=== PATIENT | female | born 1950 ===

== ENCOUNTER 2019-11-23 01:12 | Inpatient (IN) ==
[2019-11-23] MEDS ORDERED: ASPIRIN 325 MG TABLET PO ONE (03:47)
[2019-11-23] MEDS ORDERED: ONDANSETRON 4 MG/2 ML VIAL IV PRN (03:55)
[2019-11-23] MEDS ORDERED: hydrALAZINE 20 MG/1 ML VIAL IV PRN (03:55)
[2019-11-23] MEDS ORDERED: NICOTINE 21 MG/24 HR PATCH TRANSDERM PRN (03:55)
[2019-11-23] MEDS ORDERED: diphenhydrAMINE CAP 25 MG CAPSULE PO PRN (03:55)
[2019-11-23] MEDS ORDERED: ACETAMINOPHEN 325 MG TABLET PO PRN (03:55)
[2019-11-23] MEDS ORDERED: ALUMINUM/MAGNES/SIMETH MAX STR 30 ML UDCUP PO PRN (03:55)
[2019-11-23] MEDS ORDERED: GLUCAGON 1 MG VIAL IM PRN (03:55)
[2019-11-23] MEDS ORDERED: DEXTROSE 10% 250 ML BAG IV PRN (04:03)
[2019-11-23 04:05] LABS: Allen Test Positive
[2019-11-23 04:08] LABS: ABG Base Excess 6.4 MMOL/L (-2.5-2.5); ABG HCO3 30.3 MMOL/L (20-26); ABG Oxygen Saturation 98.1 % (95-100); ABG PCO2 57.1 MM HG (35-48); ABG PO2 93.9 MM HG (80-95); ABG TCO2 30.5 MMOL/L (23-27)
[2019-11-23 04:49] LABS: Basophils % 0.6 % (0.0-0.8); Eosinophils # 0.1 10*3/uL (0.0-0.87); Eosinophils % 1.5 % (0.00-10.9); Hematocrit 30.4 VOL% (35.7-47.0); Hemoglobin 9.1 GM/DL (12.0-16.0); Immature Granulocytes % 0.6 %; Immature Granulocytes Absolute 0.02 #; Lymphocytes # 0.4 10*3/uL (1.4-4.0); Lymphocytes % 11.9 % (21.3-54.2); Mean Corpuscular HGB Conc 29.9 GM/DL (32-36); Mean Corpuscular Volume 108.2 FL (87-102); Neutrophils % 74.4 % (38.7-73.9); Red Blood Count 2.81 MC/CUMM (3.8-5.5); Red Cell Distribution Width 14.6 % (9.3-17.3); White Blood Count 3.4 T/CUMM (4-12)
[2019-11-23 04:53] LABS: Platelet Count 89 T/CUMM (130-400)
[2019-11-23] MEDS ORDERED: PIPERACILLIN/TAZOBACTAM 3,375 MG in SODIUM CHLORIDE 0.9% 100 ML IV SCH (05:00)
[2019-11-23 05:07] LABS: Risk Ratio 2.09; VLDL CHOLESTEROL 26.4 MG/DL
[2019-11-23 05:09] LABS: Alanine Aminotransferase 33 U/L (13-56); Alkaline Phosphatase 154 U/L (45-117); Aspartate Amino Transferase 38 U/L (0-37); Blood Urea Nitrogen 21 MG/DL (7-18); Calcium 8.6 MG/DL (8.5-10.1); Estimated Glom Filtration Rate 9 ML/MIN; Glucose 192 MG/DL (74-106); Osmolality,Calculated 277.1 MOS/KG (273-304); Total Protein 6.6 G/DL (6.4-8.3)
[2019-11-23 05:10] LABS: Troponin I 0.163 NG/ML (0.00-0.045)
[2019-11-23 05:17] LABS: INR 1.1; PT Patient Result 12.4 SECS (9.6-12.2); Partial Thromboplastin Time 32.4 SECS (20.8-36.0)
[2019-11-23] MEDS: PIPERACILLIN/TAZOBACTAM 3,375 MG in SODIUM CHLORIDE 0.9% 100 ML IV SCH ×2 (05:36→17:06)
[2019-11-23] MEDS: INSULIN REGULAR 100 UNIT/ML SUBCUT SCH ×4 (06:07→23:54)
[2019-11-23] MEDS: ALBUTEROL/IPRATROPIUM 3 ML NEB RESP TX SCH ×3 (06:51→19:35)
[2019-11-23 07:24] LABS: ABG HCO3 29.8 MMOL/L (20-26); ABG Oxygen Saturation 98.4 % (95-100); ABG PCO2 58.8 MM HG (35-48); ABG PH 7.356 (7.35-7.45); ABG TCO2 30.3 MMOL/L (23-27); Allen Test Positive
[2019-11-23] MEDS ORDERED: METOPROLOL TARTRATE 25 MG TABLET PO SCH (09:00)
[2019-11-23] MEDS ORDERED: OSELTAMIVIR 30 MG CAPSULE PO SCH (09:00)
[2019-11-23] MEDS: AZITHROMYCIN INJ 500 MG in SODIUM CHLORIDE 0.9% 250 ML IV SCH (09:07)
[2019-11-23] MEDS: INSULIN NPH/REGULAR 70/30 100 UNIT/ML SUBCUT SCH ×2 (09:08→17:08)
[2019-11-23] MEDS: ENOXAPARIN 100 MG/ML SYRINGE SUBCUT SCH (09:08)
[2019-11-23] MEDS: ASPIRIN EC 81 MG TABLET PO SCH (09:12)
[2019-11-23] MEDS: CALCIUM ACETATE 667 MG CAPSULE PO SCH ×2 (09:30→13:17)
[2019-11-23] MEDS: MORPHINE 4 MG/1 ML VIAL IV PRN ×2 (11:17→21:38)
[2019-11-23] MEDS: SEVELAMER CARBONATE 800 MG TABLET PO SCH ×2 (13:22→17:07)
[2019-11-23] MEDS: SIMVASTATIN 20 MG TABLET PO SCH (21:03)
[2019-11-23] MEDS: guaiFENesin/DM ER 600-30 MG TABLET PO PRN (21:03)
[2019-11-23] MEDS: METOPROLOL TARTRATE 25 MG TABLET PO SCH (21:03)
[2019-11-24] MEDS: ALBUTEROL/IPRATROPIUM 3 ML NEB RESP TX SCH ×4 (00:51→19:34)
[2019-11-24 04:20] LABS: Basophils % 0.7 % (0.0-0.8); Eosinophils # 0.2 10*3/uL (0.0-0.87); Eosinophils % 5.5 % (0.00-10.9); Hematocrit 30.1 VOL% (35.7-47.0); Hemoglobin 9.1 GM/DL (12.0-16.0); Immature Granulocytes % 1.2 %; Immature Granulocytes Absolute 0.05 #; Lymphocytes # 0.6 10*3/uL (1.4-4.0); Lymphocytes % 14.7 % (21.3-54.2); Mean Corpuscular HGB Conc 30.2 GM/DL (32-36); Mean Corpuscular Volume 107.9 FL (87-102); Mean Platelet Volume 11.2 FL (9.6-12.0); Monocytes % 8.8 % (1.7-12.7); Neutrophils % 69.1 % (38.7-73.9); Platelet Count 106 T/CUMM (130-400); Red Blood Count 2.79 MC/CUMM (3.8-5.5); Red Cell Distribution Width 14.5 % (9.3-17.3); White Blood Count 4.2 T/CUMM (4-12)
[2019-11-24 04:38] LABS: Hypochromasia Slight
[2019-11-24] MEDS: PIPERACILLIN/TAZOBACTAM 3,375 MG in SODIUM CHLORIDE 0.9% 100 ML IV SCH (04:38)
[2019-11-24 04:39] LABS: Macrocytosis 1+; Ovalocytes Slight; Platelet Estimate Decreased; Polychromasia Slight
[2019-11-24 04:54] LABS: Albumin 2.9 G/DL (3.4-5.0); Bilirubin,Total 0.8 MG/DL (0.2-1.0); Calcium 8.9 MG/DL (8.5-10.1); Osmolality,Calculated 276.2 MOS/KG (273-304); Total Protein 6.4 G/DL (6.4-8.3)
[2019-11-24] MEDS: LEVOTHYROXINE 75 MCG TABLET PO SCH (05:42)
[2019-11-24] MEDS: INSULIN REGULAR 100 UNIT/ML SUBCUT SCH ×4 (06:46→23:35)
[2019-11-24] MEDS: INSULIN NPH/REGULAR 70/30 100 UNIT/ML SUBCUT SCH ×2 (08:37→17:38)
[2019-11-24] MEDS: SEVELAMER CARBONATE 800 MG TABLET PO SCH ×3 (08:37→17:39)
[2019-11-24] MEDS: ENOXAPARIN 100 MG/ML SYRINGE SUBCUT SCH (08:38)
[2019-11-24] MEDS: ASPIRIN EC 81 MG TABLET PO SCH (08:38)
[2019-11-24] MEDS: METOPROLOL TARTRATE 25 MG TABLET PO SCH ×2 (08:38→20:16)
[2019-11-24] MEDS: AZITHROMYCIN INJ 500 MG in SODIUM CHLORIDE 0.9% 250 ML IV SCH (08:38)
[2019-11-24] MEDS: AMIODARONE 200 MG TABLET PO SCH ×2 (08:38→20:16)
[2019-11-24] MEDS: MORPHINE 4 MG/1 ML VIAL IV PRN (17:42)
[2019-11-24] MEDS: HEPARIN 5,000 UNIT/1 ML VIAL SUBCUT SCH (20:16)
[2019-11-24] MEDS: SIMVASTATIN 20 MG TABLET PO SCH (20:16)
[2019-11-24] MEDS: DOCUSATE SODIUM 100 MG CAPSULE PO SCH (20:17)
[2019-11-25] MEDS: ALBUTEROL/IPRATROPIUM 3 ML NEB RESP TX SCH ×4 (00:27→19:40)
[2019-11-25] MEDS: INSULIN REGULAR 100 UNIT/ML SUBCUT SCH ×4 (05:30→23:29)
[2019-11-25] MEDS: HEPARIN 5,000 UNIT/1 ML VIAL SUBCUT SCH ×2 (05:30→13:43)
[2019-11-25] MEDS: LEVOTHYROXINE 75 MCG TABLET PO SCH (05:30)
[2019-11-25] MEDS: METOPROLOL TARTRATE 25 MG TABLET PO SCH ×2 (08:23→20:40)
[2019-11-25] MEDS: SEVELAMER CARBONATE 800 MG TABLET PO SCH ×3 (08:23→17:18)
[2019-11-25] MEDS: FOLIC ACID 1 MG TABLET PO SCH (08:23)
[2019-11-25] MEDS: DOCUSATE SODIUM 100 MG CAPSULE PO SCH ×2 (08:23→20:40)
[2019-11-25] MEDS: AMIODARONE 200 MG TABLET PO SCH ×2 (08:23→20:40)
[2019-11-25] MEDS: ASPIRIN EC 81 MG TABLET PO SCH (08:23)
[2019-11-25] MEDS: PANTOPRAZOLE 40 MG TABLET PO SCH (08:24)
[2019-11-25] MEDS: GABAPENTIN 300 MG CAPSULE PO SCH (08:24)
[2019-11-25] MEDS: LORATADINE 10 MG TABLET PO SCH (08:24)
[2019-11-25] MEDS: DOXYCYCLINE HYCLATE 100 MG CAPSULE PO SCH ×2 (08:24→20:40)
[2019-11-25] MEDS: INSULIN NPH/REGULAR 70/30 100 UNIT/ML SUBCUT SCH ×2 (08:25→17:17)
[2019-11-25] MEDS ORDERED: AZITHROMYCIN 250 MG TABLET PO SCH (09:00)
[2019-11-25] MEDS: MORPHINE 4 MG/1 ML VIAL IV PRN ×2 (11:10→23:21)
[2019-11-25] MEDS: OSELTAMIVIR 30 MG CAPSULE PO SCH (17:18)
[2019-11-25] MEDS: APIXABAN 2.5 MG TABLET PO SCH (20:40)
[2019-11-25] MEDS: SIMVASTATIN 20 MG TABLET PO SCH (20:40)
[2019-11-26] MEDS: ALBUTEROL/IPRATROPIUM 3 ML NEB RESP TX SCH ×4 (00:47→21:26)
[2019-11-26] MEDS: INSULIN REGULAR 100 UNIT/ML SUBCUT SCH ×4 (05:40→23:30)
[2019-11-26] MEDS: LEVOTHYROXINE 75 MCG TABLET PO SCH (05:40)
[2019-11-26 06:19] LABS: Basophils % 0.7 % (0.0-0.8); Eosinophils # 0.1 10*3/uL (0.0-0.87); Eosinophils % 3.1 % (0.00-10.9); Hematocrit 28.9 VOL% (35.7-47.0); Immature Granulocytes % 2.1 %; Immature Granulocytes Absolute 0.09 #; Lymphocytes # 0.7 10*3/uL (1.4-4.0); Lymphocytes % 17.6 % (21.3-54.2); Mean Corpuscular HGB Conc 31.1 GM/DL (32-36); Mean Corpuscular Volume 105.5 FL (87-102); Mean Platelet Volume 10.7 FL (9.6-12.0); Monocytes % 10.7 % (1.7-12.7); NRBC # 0.04 10*3/uL; Neutrophils % 65.8 % (38.7-73.9); Platelet Count 141 T/CUMM (130-400); Red Blood Count 2.74 MC/CUMM (3.8-5.5); Red Cell Distribution Width 14.7 % (9.3-17.3); White Blood Count 4.2 T/CUMM (4-12)
[2019-11-26 06:38] LABS: Calcium 8.8 MG/DL (8.5-10.1); Osmolality,Calculated 268.8 MOS/KG (273-304)
[2019-11-26] MEDS: APIXABAN 2.5 MG TABLET PO SCH ×2 (09:34→22:05)
[2019-11-26] MEDS: FOLIC ACID 1 MG TABLET PO SCH (09:34)
[2019-11-26] MEDS: GABAPENTIN 300 MG CAPSULE PO SCH (09:34)
[2019-11-26] MEDS: DOXYCYCLINE HYCLATE 100 MG CAPSULE PO SCH ×2 (09:34→22:05)
[2019-11-26] MEDS: AMIODARONE 200 MG TABLET PO SCH ×2 (09:34→22:06)
[2019-11-26] MEDS: LORATADINE 10 MG TABLET PO SCH (09:34)
[2019-11-26] MEDS: METOPROLOL TARTRATE 25 MG TABLET PO SCH ×2 (09:34→22:05)
[2019-11-26] MEDS: PANTOPRAZOLE 40 MG TABLET PO SCH (09:34)
[2019-11-26] MEDS: SEVELAMER CARBONATE 800 MG TABLET PO SCH ×4 (09:35→17:45)
[2019-11-26] MEDS: INSULIN NPH/REGULAR 70/30 100 UNIT/ML SUBCUT SCH ×2 (09:35→18:31)
[2019-11-26] MEDS: ASPIRIN EC 81 MG TABLET PO SCH (09:35)
[2019-11-26] MEDS: DOCUSATE SODIUM 100 MG CAPSULE PO SCH ×2 (09:35→22:05)
[2019-11-26] MEDS: guaiFENesin/DM ER 600-30 MG TABLET PO PRN (22:05)
[2019-11-26] MEDS: SIMVASTATIN 20 MG TABLET PO SCH (22:06)
[2019-11-27] MEDS: ALBUTEROL/IPRATROPIUM 3 ML NEB RESP TX SCH ×3 (02:33→12:25)
[2019-11-27] MEDS: INSULIN REGULAR 100 UNIT/ML SUBCUT SCH ×2 (05:50→12:26)
[2019-11-27] MEDS: LEVOTHYROXINE 75 MCG TABLET PO SCH (06:38)
[2019-11-27] MEDS: APIXABAN 2.5 MG TABLET PO SCH (08:00)
[2019-11-27 08:10] LABS: Basophils % 0.8 % (0.0-0.8); Eosinophils # 0.2 10*3/uL (0.0-0.87); Eosinophils % 3.1 % (0.00-10.9); Hemoglobin 9.3 GM/DL (12.0-16.0); Immature Granulocytes % 4.3 %; Immature Granulocytes Absolute 0.21 #; Lymphocytes # 0.5 10*3/uL (1.4-4.0); Lymphocytes % 10.7 % (21.3-54.2); Mean Corpuscular Volume 106.5 FL (87-102); Mean Platelet Volume 10.1 FL (9.6-12.0); Monocytes % 8.3 % (1.7-12.7); NRBC # 0.06 10*3/uL; Neutrophils % 72.8 % (38.7-73.9); Platelet Count 154 T/CUMM (130-400); Red Blood Count 2.91 MC/CUMM (3.8-5.5); Red Cell Distribution Width 14.9 % (9.3-17.3); White Blood Count 4.8 T/CUMM (4-12)
[2019-11-27 08:26] LABS: Calcium 9.1 MG/DL (8.5-10.1); Osmolality,Calculated 272.7 MOS/KG (273-304)
[2019-11-27] MEDS: AMIODARONE 200 MG TABLET PO SCH (08:42)
[2019-11-27] MEDS: ASPIRIN EC 81 MG TABLET PO SCH (08:42)
[2019-11-27] MEDS: DOXYCYCLINE HYCLATE 100 MG CAPSULE PO SCH (08:42)
[2019-11-27] MEDS: SEVELAMER CARBONATE 800 MG TABLET PO SCH ×3 (08:42→17:05)
[2019-11-27] MEDS: FOLIC ACID 1 MG TABLET PO SCH (08:42)
[2019-11-27] MEDS: LORATADINE 10 MG TABLET PO SCH (08:42)
[2019-11-27] MEDS: GABAPENTIN 300 MG CAPSULE PO SCH (08:43)
[2019-11-27] MEDS: PANTOPRAZOLE 40 MG TABLET PO SCH (08:43)
[2019-11-27] MEDS: DOCUSATE SODIUM 100 MG CAPSULE PO SCH (08:43)
[2019-11-27] MEDS: INSULIN NPH/REGULAR 70/30 100 UNIT/ML SUBCUT SCH ×2 (08:43→17:05)
[2019-11-27] MEDS ORDERED: amLODIPine 5 MG TABLET PO SCH (09:00)
[2019-11-27] MEDS: OSELTAMIVIR 30 MG CAPSULE PO SCH (17:05)
[2019-11-27 18:15] VITALS: BP 159/59
== END 2019-11-27 17:14 | disposition home or self-care (01) | DRG 202 ==
LOC: SUATTDRO 02:49 → N.CC 02:49 → N.5E 11-24 14:26
PROVIDERS: ADMIT Internal Medicine; ATTEND Family Medicine